=== PATIENT | female | born 1960 | race Caucasian/White ===

== ENCOUNTER 2020-12-25 23:55 | Observation (INO) | payer MEDICARE, OTHER ==
[~2020-12-25] VITALS: Ht 154.9 cm; Wt 63.3 kg
[2020-12-26] VITALS (8 sets, daily range): BP systolic 89–151; BP diastolic 48–88
[2020-12-26] MEDS ORDERED: HYDR-3820 PO (00:04)
[2020-12-26] MEDS ORDERED: LISI1TAB46 PO (00:04)
[2020-12-26] MEDS ORDERED: DULO30CA49 PO (00:04)
[2020-12-26 00:14] LABS: BASOPHILS # (AUTO) 0.1 10^3/uL (0.0-0.1); BASOPHILS % (AUTO) 0 % (0-10); EOSINOPHILS # (AUTO) 0.1 10^3/uL (0.0-0.3); EOSINOPHILS % (AUTO) 0 % (0-10); HEMATOCRIT 41 % (35-52); HEMOGLOBIN 13.9 g/dL (11.5-16.0); LYMPHOCYTES # (AUTO) 1.3 10^3/uL (1.0-4.0); LYMPHOCYTES % (AUTO) 7 % (12-44); MEAN CORPUSCULAR HEMOGLOBIN 37 pg (25-34); MEAN CORPUSCULAR HGB CONC 34 g/dL (32-36); MEAN CORPUSCULAR VOLUME 110 fL (80-99); MONOCYTES # (AUTO) 0.6 10^3/uL (0.0-1.0); MONOCYTES % (AUTO) 3 % (0-12); NEUTROPHILS # (AUTO) 16.3 10^3/uL (1.8-7.8); NEUTROPHILS % (AUTO) 89 % (42-75); PLATELET COUNT 465 10^3/uL (130-400); WHITE BLOOD COUNT 18.4 10^3/uL (4.3-11.0)
[2020-12-26 00:17] LABS: ALBUMIN 4.2 GM/DL (3.2-4.5)
[2020-12-26 00:18] LABS: POTASSIUM 2.8 MMOL/L (3.6-5.0)
[2020-12-26 00:19] LABS: CALCIUM 9.5 MG/DL (8.5-10.1)
[2020-12-26 00:20] LABS: TOTAL PROTEIN 7.7 GM/DL (6.4-8.2)
[2020-12-26 00:22] LABS: BILIRUBIN,TOTAL 0.7 MG/DL (0.1-1.0)
[2020-12-26 00:24] LABS: CREATININE SERUM 1.81 MG/DL (0.60-1.30)
[2020-12-26] MEDS ORDERED: ONDANSETRON 4 MG/2 ML (SDV) Z0FRAN IVP ONE (00:45)
[2020-12-26 00:47] LABS: BAND NEUTROPHILS 4 %; EOSINOPHILS % (MANUAL) 1 %; LYMPHOCYTES % (MANUAL) 5 %; MONOCYTES % (MANUAL) 3 %; NEUTROPHILS % (MANUAL) 87 %
[2020-12-26 01:10] LABS: MAGNESIUM 2.3 MG/DL (1.6-2.4)
--- NOTE | 2020-12-26 01:27 | ED Syncope ---
General Chief Complaint: Dizziness/Syncope Stated Complaint: SYNCOPE Source of Information: Patient, Family Exam Limitations: No Limitations History of Present Illness Date Seen by Provider: Dec 26, 2020 Time Seen by Provider: 00:27 Initial Comments Here with report of syncopal episode at home. She is apparently walking into the bathroom and she felt some GI distress and then passed out. She fell and hit the back of her head. No significant loss of consciousness. She has been under a lot of stress over the last week as she had CT scan from outside facility which showed thyroid mass. She has appointment at [facility] at 1330 today for evaluation of the and likely surgical intervention. She admits to drinking approximately a pint to 1/5 of alcohol daily since the of her grandson a year ago. She does not drink every day and denies any withdrawal symptoms. Denies blood in her urine or stool. She has had some vomiting. She has felt like she could have diarrhea but has not. She does admit to decreased appetite and decreased eating and drinking due to the stress of everything. She has known difficulty with swallowing due to the thyroid mass which is approximately 3 x [address] scan report that was brought in by the patient. Denies recent illness otherwise. She has had her Covid vaccination. She denies contact with anybody with Covid. Denies chest pain or breathing problems. Timing/Prior Episodes: No Prior History Symptoms Prior to Episode: Lightheadedness, Nausea Precipitating Factors: Emotional Stress Loss of Consciousness: Brief (Seconds) Current Symptoms: No Back to Normal, No Chest Pain, No Headache; Lightheadedness; No Loss of Bladder Control, No Loss of Bowel Control; Nausea, Weakness Allergies and Home Medications Allergies Coded Allergies: morphine (Verified Allergy, Unknown, 12/26/20) Patient Home Medication List Home Medication List Reviewed: Yes Duloxetine HCl (Duloxetine HCl) 30 Mg Capsule., (Reported) Entered as Reported by: AV DEAN on 12/26/20 0004 Last Action: New Order Hydrocodone/Acetaminophen (Hydrocodone-Acetamin 10-325 mg) 1 Each Tablet, (Reported) Entered as Reported by: AV DEAN on 12/26/203 Last Action: New Order Lisinopril/Hydrochlorothiazide (Lisinopril-Hctz 20-12.5 mg Tab) 1 Each Tablet, (Reported) Entered as Reported by: AV DEAN on 12/26/20 0004 Last Action: New Order Review of Systems Constitutional: see HPI; No chills, No fever EENTM: no symptoms reported Respiratory: No cough, No short of breath Cardiovascular: No chest pain, No edema Gastrointestinal: abdominal pain, nausea, vomiting Genitourinary: no symptoms reported Musculoskeletal: No back pain, No muscle pain Skin: no symptoms reported All Other Systems Reviewed Negative Unless Noted: Yes Past Sshemqs-Xzhcgq-Debbfe Hx Patient Social History Tobacco Use?: Yes Tobacco type used: Cigarettes Substance use?: No Alcohol Use?: Yes Alcohol type: Hard Liquor Alcohol Frequency: Daily Past Medical History Surgeries: Yes Orthopedic, Thyroidectomy Respiratory: Yes Asthma Cardiac: Yes Hypertension Genitourinary: No Gastrointestinal: No Musculoskeletal: Yes Degenerate Disk Disease Cancer: Yes Thyroid What Type of Treatment Did You: Surgical Intervention Psychosocial: Yes Depression Family Medical History Reviewed and Corrections made No Pertinent Family Hx Physical Exam Vital Signs Vital Signs - First Documented 12/26/20 12/26/20 00:00 00:22 Temp 36.8 Pulse 77 Resp 18 B/P (MAP) 103/48 (66) 99/60 (73) 89/54 (66) Pulse Ox 96 O2 Delivery Room Air Capillary Refill : Height, Weight, BMI Height: '" Weight: lbs. oz. kg; BMI Method: General Appearance: No Apparent Distress, WD/WN HEENT: PERRL/EOMI, Pharynx Normal Neck: Non Tender, Supple, Lymphadenopathy (L), Lymphadenopathy (R) Cardiovascular: Regular Rate, Rhythm, No Murmur Respiratory: No Accessory Muscle Use, No Respiratory Distress, Crackles Gastrointestinal: Non Tender, Soft Back: Normal Inspection, No CVA Tenderness, No Vertebral Tenderness Extremities: Normal Range of Motion, Non Tender Neurologic/Psychiatric: Alert, Oriented x3 Motor/Sensory: No Motor Deficit, No Sensory Deficit, No Pronator Drift Skin: Normal Color, Warm/Dry Progress/Results/Core Measures Results/Orders Lab Results Laboratory Tests Test 12/26/20 00:05 12/26/20 02:37 Range/Units White Blood Count 18.4 H 4.3-11.0 10^3/uL Red Blood Count 3.72 L 3.80-5.11 10^6/uL Hemoglobin 13.9 11.5-16.0 g/dL Hematocrit 41 35-52 % Mean Corpuscular Volume 110 H 80-99 fL Mean Corpuscular Hemoglobin 37 H 25-34 pg Mean Corpuscular Hemoglobin Concent 34 32-36 g/dL Red Cell Distribution Width 13.6 10.0-14.5 % Platelet Count 465 H 130-400 10^3/uL Mean Platelet Volume 9.0 9.0-12.2 fL Immature Granulocyte % (Auto) 0 % Neutrophils (%) (Auto) 89 H 42-75 % Lymphocytes (%) (Auto) 7 L 12-44 % Monocytes (%) (Auto) 3 0-12 % Eosinophils (%) (Auto) 0 0-10 % Basophils (%) (Auto) 0 0-10 % Neutrophils # (Auto) 16.3 H 1.8-7.8 10^3/uL Lymphocytes # (Auto) 1.3 1.0-4.0 10^3/uL Monocytes # (Auto) 0.6 0.0-1.0 10^3/uL Eosinophils # (Auto) 0.1 0.0-0.3 10^3/uL Basophils # (Auto) 0.1 0.0-0.1 10^3/uL Immature Granulocyte # (Auto) 0.1 0.0-0.1 10^3/uL Neutrophils % (Manual) 87 % Lymphocytes % (Manual) 5 % Monocytes % (Manual) 3 % Eosinophils % (Manual) 1 % Band Neutrophils 4 % Macrocytosis SLIGHT D-Dimer 1.53 H 0.00-0.49 UG/ML Sodium Level 140 135-145 MMOL/L Potassium Level 2.8 L 3.6-5.0 MMOL/L Chloride Level 88 L 98-107 MMOL/L Carbon Dioxide Level 18 L 21-32 MMOL/L Anion Gap 34 H 5-14 MMOL/L Blood Urea Nitrogen 25 H 7-18 MG/DL Creatinine 1.81 H 0.60-1.30 MG/DL Estimat Glomerular Filtration Rate 28 BUN/Creatinine Ratio 14 Glucose Level 156 H 70-105 MG/DL Calcium Level 9.5 8.5-10.1 MG/DL Corrected Calcium 9.3 8.5-10.1 MG/DL Magnesium Level 2.3 1.6-2.4 MG/DL Total Bilirubin 0.7 0.1-1.0 MG/DL Aspartate Amino Transf (AST/SGOT) 51 H 5-34 U/L Alanine Aminotransferase (ALT/SGPT) 37 0-55 U/L Alkaline Phosphatase 109 40-136 U/L Troponin I 0.116 H <0.028 NG/ML C-Reactive Protein High Sensitivity 2.89 H 0.00-0.50 MG/DL Total Protein 7.7 6.4-8.2 GM/DL Albumin 4.2 3.2-4.5 GM/DL TSH [place] Testing 0.44 0.35-4.94 UIU/ML Urine Color YELLOW Urine Clarity CLEAR Urine pH 5.5 5-9 Urine Specific [place] >=1.030 1.016-1.022 Urine Protein TRACE H NEGATIVE Urine Glucose (UA) NEGATIVE NEGATIVE Urine Ketones 2+ H NEGATIVE Urine Nitrite NEGATIVE NEGATIVE Urine Bilirubin 1+ H NEGATIVE Urine Urobilinogen 0.2 < = 1.0 MG/DL Urine Leukocyte Esterase NEGATIVE NEGATIVE Urine RBC (Auto) NEGATIVE NEGATIVE Urine RBC NONE /HPF Urine WBC NONE /HPF Urine Squamous Epithelial Cells 2-5 /HPF Urine Crystals NONE /LPF Urine Bacteria TRACE /HPF Urine Casts PRESENT /LPF Urine Hyaline Casts 10-25 H /LPF Urine Mucus SMALL H /LPF Urine Culture Indicated NO My Orders Orders - J LUIS SILVA MD Cbc With Automated Diff (12/26/20 00:04) Comprehensive Metabolic Panel (12/26/20 00:04) Monitor-Rhythm Ecg Trace Only (12/26/20 00:04) Ekg Tracing (12/26/20 00:04) Orthostatic Vital Signs (Adult (12/26/20 00:04) Fibrin Degradation Products (12/26/20 00:21) Troponin I (12/26/20:21) Manual Differential (12/26/20 00:05) Hs C Reactive Protein (12/26/20 00:37) Magnesium (12/26/20 00:37) Thyroid Analyzer (12/26/20 00:37) Ua Culture If Indicated (12/26/20 00:37) Ondansetron Injection (Zofran Injectio (12/26/20 00:45) Chest 1 View, Ap/Pa Only (12/26/20 00:37) Ct Head Wo (12/26/20 00:37) Lactated Ringers (Lr 1000 Ml Iv Solution (12/26/20 01:45) Potassium Cl 10meq/50ml Ivpb (Kcl 10 Meq (12/26/20 02:15) Aspirin Chewable Tablet (Baby Aspirin Ch (12/26/20 04:00) Medications Given in ED Current Medications Medications Dose Ordered Sig/Gigi Route Start Time Stop Time Status Last Admin Dose Admin Aspirin 324 mg ONCE ONCE PO 12/26/20 04:00 12/26/20 04:01 DC 12/26/20 04:07 324 MG Lactated Ringer's 1,000 ml @ 0 mls/hr Q0M ONCE IV 12/26/20 01:45 12/26/20 01:46 DC 12/26/20 01:45 1,000 MLS/HR Ondansetron HCl 4 mg ONCE ONCE IVP 12/26/20 00:45 12/26/20 00:46 DC 12/26/20 00:55 4 MG Potassium Chloride 50 ml @ 50 mls/hr ONCE ONCE IV 12/26/20 02:15 12/26/20 03:14 DC 12/26/20 02:30 50 MLS/HR Vital Signs/I&O 12/26/20 12/26/20 00:00 00:22 Temp 36.8 Pulse 77 67 80 74 Resp 18 B/P (MAP) 103/48 (66) 99/60 (73) 89/54 (66) Pulse Ox 96 O2 Delivery Room Air 12/26/20 00:00 Intake Total 500 ml Balance 500 ml Blood Pressure Mean: 66 Progress Progress Note : Progress Note Seen and evaluated. IV established by EMS with normal saline 1 L bolus running which we will complete. Labs, chest x-ray, EKG and CT head ordered. We will check thyroid studies as well as troponin and D-dimer due to syncope. She does have thyroid mass as well. Monitor patient. 0135: Repeat fluid bolus with LR 1 L bolus due to apparent dehydration on chemistries. Troponin slightly elevated and D-dimer is elevated as well. EKG is not normal and she has LVH with questionable ST depression in the lateral leads. She has no ST elevation. Patient denies chest pain. Unable to do CT angiogram of the chest due to renal insufficiency. Pending UA. Monitor patient. 0402: I did discuss the case with Dr. Barreto, cardiology on-call and he accepts patient in consult. 0410: I did discuss the case with Dr. Sneed and she accepts patient for admission, observation status. Patient does have thyroid mass and this could be evaluated here to potentially if our surgery team has that capability. I believe that for inpatient admitting team to evaluate. Dr. Barreto is requesting n.p.o. status and repeat troponin in the morning which was ordered. She remains chest pain- free and in fact is feeling much better after fluid administration. UA is negative. White count elevation is likely related to the vomiting. This also probably accounts for the hypokalemia. We will replace potassium and did give 10 mEq IV already. We have ordered 20 mEq IV for administration on the floor. All findings and concerns discussed with patient and family who agree with the plan. Initial ECG Impression Date: Dec 26, 2020 Initial ECG Impression Time: 00:11 Initial ECG Rate: 65 Initial ECG Rhythm: Normal Sinus Comment Sinus rhythm with left atrial enlargement. Incomplete right bundle branch block. Left ventricular hypertrophy. Prolonged QT interval. Minimal ST depression in leads V3 through V5. No ST elevation [place] noted. No previous available for comparison. Interpreted by me. Diagnostic Imaging Diagonstic Imaging: Xray Plain Films/CT/US/NM/MRI: chest Comments No obvious infiltrate or pneumothorax. Reviewed: Reviewed by Me Diagonstic Imaging: CT Plain Films/CT/US/NM/MRI: head Comments No acute hemorrhage, hydrocephalus or mass-effect. Reviewed: Reviewed Night [facility] Study CT Read Date: Dec 26, 2020 CT Read Time: 01:15 Departure Communication (Admissions) Time/Spoke to Admitting Phy: 04:10 Time/Spoke to Consulting Phy: 04:02 Impression Primary Impression: Syncope Qualified Codes: R55 - Syncope and collapse Additional Impressions: Hypokalemia Elevated troponin Vomiting Qualified Codes: R11.2 - Nausea with vomiting, unspecified Thyroid mass Disposition: ADMITTED INPATIENT Condition: Stable Admissions Decision to Admit Reason: Admit from ER (General) Decision to Admit/Date: Dec 26, 2020 Time/Decision to Admit Time: 04:02 Departure-Patient Inst. Referrals: NO,LOCAL PHYSICIAN (PCP/Family) Primary Care Physician J LUIS SILVA MD Dec 26, 2020 01:27
[2020-12-26 01:30] LABS: TSH (THYROID ANALYZER) 0.44 UIU/ML (0.35-4.94)
[2020-12-26] MEDS ORDERED: LACTATED RINGERS 1,000 ML IV ONE (01:45)
[2020-12-26] MEDS ORDERED: POTASSIUM CL 10MEQ/50ML IVPB 50 ML IV ONE (02:15)
[2020-12-26 02:38] LABS: CLARITY,URINE CLEAR; COLOR,URINE YELLOW; GLUCOSE, URINE (UA) NEGATIVE (NEGATIVE); KETONES,URINE 2+ (NEGATIVE); LEUKOCYTE ESTERASE ,URINE NEGATIVE (NEGATIVE); NITRITE,URINE NEGATIVE (NEGATIVE); PH,URINE 5.5 (5-9); PROTEIN,URINE TRACE (NEGATIVE)
[2020-12-26 02:47] LABS: BACTERIA,URINE TRACE /HPF; BILIRUBIN,URINE 1+ (NEGATIVE)
[2020-12-26] MEDS ORDERED: ASPIRIN 81 MG CHEW (CHILDREN'S ASA) PO ONE (04:00)
[2020-12-26] MEDS: LACTATED RINGERS 1,000 ML IV SCH ×3 (05:13→22:53)
[2020-12-26] MEDS: POTASSIUM CL 10MEQ/50ML IVPB 50 ML IV SCH ×2 (05:13→06:04)
--- NOTE | 2020-12-26 06:51 | Diagnostic Imaging Report ---
PROCEDURE: CT head without contrast. TECHNIQUE: Multiple contiguous axial images were obtained through the brain without the use of intravenous contrast. Auto Exposure Controls were utilized during the CT exam to meet ALARA standards for radiation dose reduction. INDICATION: Syncope with head injury. COMPARISON: None available. FINDINGS: No hyperdense hemorrhage or space-occupying mass. No hydrocephalus or midline shift. The basilar cisterns are normal. Wang-white matter differentiation is well preserved. The mastoid air cells are clear. Paranasal sinuses are normal. No focal osseous abnormality of the calvarium. IMPRESSION: 1. No acute intracranial process. 2. Findings are in agreement with the preliminary report. Dictated by: Dictated on workstation # [id number]
--- NOTE | 2020-12-26 07:30 | Diagnostic Imaging Report ---
INDICATION: syncope. TECHNIQUE: Single view chest 1:05 AM. CORRELATION STUDY: None FINDINGS: The heart size, mediastinal configuration and pulmonary vascularity are within normal limits. Asymmetric increased density medial right lung base, question for potential infiltrate or aspiration. Left lung clear. Partial visualization of cervical-thoracic spinal fixation hardware. IMPRESSION: 1. Suspect infiltrate or aspiration at the right lung base medially. Follow-up imaging if clinically warranted. Dictated by: Dictated on workstation # [id number]
[2020-12-26 08:54] LABS: POTASSIUM 3.3 MMOL/L (3.6-5.0)
[2020-12-26 08:55] LABS: CALCIUM 8.8 MG/DL (8.5-10.1)
[2020-12-26 09:00] LABS: CREATININE SERUM 1.2 MG/DL (0.60-1.30)
[2020-12-26] MEDS ORDERED: GABA-490 PO ×2 (10:19→12:39)
--- NOTE | 2020-12-26 12:13 | History & Physical-Hospitalist ---
History of Present Illness HPI/Chief Complaint Joanna Ramirez is a 60 year old female with PMH hypertension, thyroid nodules status post partial thyroidectomy, thyroid mass, alcohol abuse, who presented with lightheadedness and dizziness. She reports that she was going to the bathroom last night and got very dizzy and fell down to the ground. She denies losing consciousness. She did hit her head. She had to crawl out of the bathroom. She says that her blood pressure was very low. She denies any chest pain. She denies shortness of breath. She denies nausea and vomiting. She denies diarrhea. She has not had any weight loss. Source: patient Exam Limitations: no limitations Date Seen 12/26/20 Time Seen by a Provider: 09:50 Attending Physician Gregoria Sneed DO PCP No,Local Physician Referring Physician Date of Admission Dec 26, 2020 at 04:24 Home Medications & Allergies Home Medications Reviewed patient Home Medication Reconciliation performed by pharmacy medication reconciliations radioactivity technician and/or nursing. Patients Allergies have been reviewed. Allergies Allergies Coded Allergies morphine (Verified Allergy, Unknown, Rash, 12/26/20) Past Uwfxpes-Qswuat-Otlfiz Hx Patient Social History Tobacco Use?: No Tobacco type used: Cigarettes Smoking Status: Current Everyday Smoker Use of E-Cig and/or Vaping dev: No Substance use?: No Alcohol Use?: No Alcohol type: Hard Liquor Alcohol Frequency: Daily Pt feels they are or have been: No Current Status status: No status: No Advance Directives: No Communicates: Verbally Primary Language: Japanese Preferred Spoken Language: Japanese Is interpretation needed?: No Implanted or Applied Medical D: None Past Medical History Surgeries: Orthopedic, Thyroidectomy Asthma Hypertension Degenerate Disk Disease Thyroid What Type of Treatment Did You: Surgical Intervention Depression Family Medical History Reviewed and Corrections made No Pertinent Family Hx Review of Systems Constitutional: dizziness EENTM: no symptoms reported Respiratory: no symptoms reported Cardiovascular: no symptoms reported Gastrointestinal: no symptoms reported Genitourinary: no symptoms reported Musculoskeletal: no symptoms reported Skin: no symptoms reported Psychiatric/Neurological: No Symptoms Reported Physical Exam Physical Exam Vital Signs Vital Signs - First Documented 12/26/20 12/26/20 00:00 00:22 Temp 36.8 Pulse 77 Resp 18 B/P (MAP) 103/48 (66) 99/60 (73) 89/54 (66) Pulse Ox 96 O2 Delivery Room Air Capillary Refill : Less Than 3 Seconds Height, Weight, BMI Height: '" Weight: lbs. oz. kg; 26.38 BMI Method: General Appearance: No Apparent Distress, WD/WN HEENT: PERRL/EOMI, Pharynx Normal Neck: Normal Inspection, Other (Left thyroid nodule) Respiratory: Lungs Clear, Normal Breath Sounds, No Respiratory Distress Cardiovascular: Regular Rate, Rhythm, No Edema, No Murmur Gastrointestinal: Normal Bowel Sounds, Non Tender, Soft Extremity: Normal Inspection, Non Tender, No Pedal Edema Neurologic/Psychiatric: Alert, Oriented x3, No Motor/Sensory Deficits, Normal Mood/Affect Skin: Normal Color, Warm/Dry Results Results/Procedures Labs Laboratory Tests 12/26/20 00:05 12/26/20 08:25 Patient resulted labs reviewed. Imaging: Reviewed Imaging Report Assessment/Plan Admission Diagnosis Presyncope Admission Status: Observation Assessment and Plan Presyncope Likely orthostatic hypotension Elevated troponin Hypokalemia Orthostatics negative Continue IV fluids Symptoms resolved Troponin mildly elevated, repeat decreasing Cardiology consulted Monitor on business integration manager and correct electrolytes as needed Diagnosis/Problems Diagnosis/Problems (1) Pre-syncope Status: Acute (2) Orthostatic hypotension Status: Acute (3) Elevated troponin Status: Acute (4) Thyroid mass Status: Acute (5) Hypokalemia Status: Acute LUIS BUENO MD Dec 26, 2020 12:13
[2020-12-26] MEDS ORDERED: METO200T48 PO (12:39)
[2020-12-26] MEDS ORDERED: ASPI-789 PO (12:39)
[2020-12-26] MEDS ORDERED: IBUP-2185 PO (12:39)
--- NOTE | 2020-12-26 17:41 | Consultation-Cardiology ---
HPI-Cardiology Cardiology Consultation: Date of Consultation 12/26/2020 Date of Admission 12/25/2020 Attending Physician Gregoria Sneed DO Admitting Physician Zaida,Local Physician Consulting Physician EDDY SMALL JR, MD HPI: Time Seen by a Provider: 17:45 Chief Complaint: Reason for consultation: Syncope. I had the pleasure of seeing Joanna on the cardiac stepdown unit at [facility] in [place], [place] this evening. She has no known history of coronary artery disease. She was in her usual state of health until yesterday when she was having a significant amount of nausea and vomiting. She denies any abdominal pain. She denies diarrhea. She was also having cold sweats. After she had vomited several times, she laid down to rest. She spent most of the day in bed. Then last evening she got up to use the bathroom and she became very weak and fell on the floor. She is not sure if she lost consciousness. She tried to stand up but was too weak. She crawled over to a chair and tried to call her brother but he did not answer the phone. She then crawled down the cedillo to his bedroom and woke him up. He helped her on the sofa and she laid there for a short while then called her daughter who came over to check on her. Her daughter checked her blood pressure and systolic was 58 mmHg so she called 911. The patient was then taken to the emergency room for further evaluation. During evaluation, she was found to have acute kidney injury, hypokalemia and a mildly elevated troponin level. Overnight she received a significant amount of intravenous fluids and her metabolic derangements are improving and the troponin level is going down. She did have some burning sensation in her chest yesterday but she was not sure if this was related to the vomiting. She denies dyspnea. She denies paroxysmal nocturnal dyspnea, orthopnea, palpitations, or lower extremity edema. She started taking duloxetine about 1 month ago for her anxiety. Certain portions of this document may have been dictated utilizing voice recognition technology. Inherent to this technology, typographical and grammatical errors may exist. As much as I am diligent to identify and correct these mistakes, some errors may remain in the document. Review of Systems-Cardiology Review of Systems Other comments Review of 10 organ systems is as per the history of present illness, otherwise negative. All Other Systems Reviewed Negative Unless Noted: Yes [id number] Hx Patient Social History Smoking Status: Current Everyday Smoker Have you traveled recently?: No Alcohol Use?: No Pt feels they are or have been: No Tobacco type used: Cigarettes Past Medical History PMH As described under Assessment. Family Medical History Family Medical History: The patient does not know of any family history of premature coronary artery disease in first-degree relatives. Allergies and Home Medications Allergies Coded Allergies: morphine (Verified Allergy, Unknown, Rash, 12/26/20) Patient Home Medication List Home Medication List Reviewed: Yes Aspirin/Acetaminophen/Caffeine (Excedrin Migraine Caplet) 1 Each Tablet, 2 EACH PO Q6-8HR PRN for Headache, (Reported) Entered as Reported by: TIKI AGUILAR on 12/26/201238 Last Action: Reviewed Duloxetine HCl (Duloxetine HCl) 30 Mg Capsule.dr, 30 MG PO HS, (Reported) Entered as Reported by: AV DEAN on 12/26/203 Last Action: Reviewed Gabapentin (Gabapentin) 400 Mg Capsule, 400 MG PO 1799,1999, (Reported) Entered as Reported by: JAYDON JACOBS on 12/26/20 101 Last Action: Reviewed Gabapentin (Gabapentin) 400 Mg Capsule, 800 MG PO DAILY, (Reported) Entered as Reported by: TIKI AGUILAR on 12/26/201238 Last Action: Reviewed Hydrocodone/Acetaminophen (Hydrocodone-Acetamin 10-325 mg) 1 Each Tablet, 1 EA PO Q4H, (Reported) Entered as Reported by: AV EDAN on 12/26/20 0004 Last Action: Reviewed Ibuprofen (Ibuprofen) 200 Mg Capsule, 800 MG PO Q8H PRN for PAIN-MILD (1-4), (Reported) Entered as Reported by: TIKI AGUILAR on 12/26/201238 Last Action: Reviewed Lisinopril/Hydrochlorothiazide (Lisinopril-Hctz 20-12.5 mg Tab) 1 Each Tablet, 1 EA PO HS, (Reported) Entered as Reported by: AV DEAN on 12/26/203 Last Action: Reviewed Metoprolol Succinate (Metoprolol Succinate) 200 Mg Tab.er.24h, 200 MG PO DAILY, (Reported) Entered as Reported by: TIKI AGUILAR on 12/26/201238 Last Action: Reviewed Exam Vital Signs Vital Signs Date Time Temp Pulse Resp B/P (MAP) Pulse Ox O2 Delivery O2 Flow Rate FiO2 12/26/20 16:00 36.8 90 18 151/71 (97) 93 Room Air Physical Exam General: Alert. No acute distress. Well nourished and appears stated age. Eye: Extraocular movements are intact. Conjunctivae are clear. There are no xanthelasma. HENT: Normocephalic. Atraumatic. Carotid pulsations 2/2 without bruits. Neck: Jugular venous pressure does not appear elevated. There is a soft mass at the supraclavicular notch. Respiratory: Lungs are clear to auscultation. Respirations are non-labored. Breath sounds are equal. Symmetrical chest wall expansion. Cardiovascular: Normal rate. Regular rhythm. 1/6 systolic ejection murmur. No gallop. Point of maximal impulse is not appear displaced. Good pulses equal in all extremities. No edema. Gastrointestinal: Soft. Normal bowel sounds. Skin: Skin turgor is normal. There is no pallor. Musculoskeletal: No kyphosis or scoliosis appreciated. Neurologic: Alert and oriented to person, place, time. Cranial nerves 3-12 appear grossly intact. The patient has good motor tone strength in the upper and lower extremities bilaterally. Psychiatric: Cooperative. Appropriate mood & affect. Labs Laboratory Tests Test 12/26/20 00:05 12/26/20 02:37 12/26/20 08:25 Range/Units White Blood Count 18.4 H 4.3-11.0 10^3/uL Red Blood Count 3.72 L 3.80-5.11 10^6/uL Hemoglobin 13.9 11.5-16.0 g/dL Hematocrit 41 35-52 % Mean Corpuscular Volume 110 H 80-99 fL Mean Corpuscular Hemoglobin 37 H 25-34 pg Mean Corpuscular Hemoglobin Concent 34 32-36 g/dL Red Cell Distribution Width 13.6 10.0-14.5 % Platelet Count 465 H 130-400 10^3/uL Mean Platelet Volume 9.0 9.0-12.2 fL Immature Granulocyte % (Auto) 0 % Neutrophils (%) (Auto) 89 H 42-75 % Lymphocytes (%) (Auto) 7 L 12-44 % Monocytes (%) (Auto) 3 0-12 % Eosinophils (%) (Auto) 0 0-10 % Basophils (%) (Auto) 0 0-10 % Neutrophils # (Auto) 16.3 H 1.8-7.8 10^3/uL Lymphocytes # (Auto) 1.3 1.0-4.0 10^3/uL Monocytes # (Auto) 0.6 0.0-1.0 10^3/uL Eosinophils # (Auto) 0.1 0.0-0.3 10^3/uL Basophils # (Auto) 0.1 0.0-0.1 10^3/uL Immature Granulocyte # (Auto) 0.1 0.0-0.1 10^3/uL Neutrophils % (Manual) 87 % Lymphocytes % (Manual) 5 % Monocytes % (Manual) 3 % Eosinophils % (Manual) 1 % Band Neutrophils 4 % Macrocytosis SLIGHT D-Dimer 1.53 H 0.00-0.49 UG/ML Sodium Level 140 137 135-145 MMOL/L Potassium Level 2.8 L 3.3 L 3.6-5.0 MMOL/L Chloride Level 88 L 95 L 98-107 MMOL/L Carbon Dioxide Level 18 L 17 L 21-32 MMOL/L Anion Gap 34 H 25 H 5-14 MMOL/L Blood Urea Nitrogen 25 H 23 H 7-18 MG/DL Creatinine 1.81 H 1.20 0.60-1.30 MG/DL Estimat Glomerular Filtration Rate 28 46 BUN/Creatinine Ratio 14 19 Glucose Level 156 H 146 H 70-105 MG/DL Calcium Level 9.5 8.8 8.5-10.1 MG/DL Corrected Calcium 9.3 8.5-10.1 MG/DL Magnesium Level 2.3 1.6-2.4 MG/DL Total Bilirubin 0.7 0.1-1.0 MG/DL Aspartate Amino Transf (AST/SGOT) 51 H 5-34 U/L Alanine Aminotransferase (ALT/SGPT) 37 0-55 U/L Alkaline Phosphatase 109 40-136 U/L Troponin I 0.116 H 0.032 H <0.028 NG/ML C-Reactive Protein High Sensitivity 2.89 H 0.00-0.50 MG/DL Total Protein 7.7 6.4-8.2 GM/DL Albumin 4.2 3.2-4.5 GM/DL TSH Plato Testing 0.44 0.35-4.94 UIU/ML Urine Color YELLOW Urine Clarity CLEAR Urine pH 5.5 5-9 Urine Specific [place] >=1.030 1.016-1.022 Urine Protein TRACE H NEGATIVE Urine Glucose (UA) NEGATIVE NEGATIVE Urine Ketones 2+ H NEGATIVE Urine Nitrite NEGATIVE NEGATIVE Urine Bilirubin 1+ H NEGATIVE Urine Urobilinogen 0.2 < = 1.0 MG/DL Urine Leukocyte Esterase NEGATIVE NEGATIVE Urine RBC (Auto) NEGATIVE NEGATIVE Urine RBC NONE /HPF Urine WBC NONE /HPF Urine Squamous Epithelial Cells 2-5 /HPF Urine Crystals NONE /LPF Urine Bacteria TRACE /HPF Urine Casts PRESENT /LPF Urine Hyaline Casts 10-25 H /LPF Urine Mucus SMALL H /LPF Urine Culture Indicated NO Radiology ECHOCARDIOGRAM (12/26/2020): 1. Left ventricle: The cavity size is normal. Wall thickness is normal. Systolic function is normal. The estimated ejection fraction is 60-65%. There were no regional wall motion abnormalities identified. Left ventricular diastolic function parameters are normal. 2. Aortic valve: There is mild aortic stenosis with a mean gradient of 11 mmHg, a peak gradient of 25 mmHg, and a peak velocity of 2.5 m/s. 3. Pulmonary arteries: The pulmonary artery pressure cannot be estimated on this study due to inadequate tricuspid regurgitant envelope. ECG Impression ECG EKG : Comment Sinus rhythm with incomplete right bundle branch block, diffuse nonspecific ST-T wave changes and prolonged QT with a QTc of 586 ms. Diagnosis/Problems Diagnosis/Problems (1) Syncope Status: Acute Assessment & Plan: She is not completely sure if she did have complete loss of consciousness. I suspect she had profound weakness due to severe dehydration from vomiting. She does have possible mild aortic stenosis noted on her echocardiogram. This would not cause syncope. She does also have a prolonged QT interval but this could be related to hypokalemia that was present on admission around the time the electrocardiogram was performed. I would suggest monitoring her for 1 more night and give her some additional intravenous fluids. I will obtain a follow-up electrocardiogram in the morning. If the QT interval is improved, then she most likely just had prolonged QT due to hypokalemia. If the QT interval remains elevated, I would stop her metoprolol and duloxetine since this combination can cause QT prolongation according to our pharmacist. (2) Elevated troponin Status: Acute Assessment & Plan: I suspect this may have been related to the acute kidney injury. This is trending downward. She is not having any anginal chest pain and has no obvious ischemic changes on her electrocardiogram. This is likely noncardiac elevation of the troponin and does not represent an acute myocardial infarction. (3) Prolonged QT interval Assessment & Plan: As above, this may have been related to the hypokalemia or possibly a drug-drug interaction. We will proceed as above. (4) Primary hypertension Assessment & Plan: She was actually having low blood pressures on admission. This is improving with intravenous fluids. I would hold off on resuming her antihypertensive medication until tomorrow. (5) Aortic stenosis Assessment & Plan: Her echocardiogram shows possible mild aortic stenosis by velocities although the valve itself is not well visualized. Some of the acceleration of flow may have been related to hyperdynamic state due to hypovolemia. I would just recommend a follow-up echocardiogram in 1 years time. (6) Acute kidney injury superimposed on chronic kidney disease Assessment & Plan: Most likely related to dehydration. As above, this likely caused the troponin level to become elevated. The renal function is improving with intravenous hydration. (7) Cigarette smoker Assessment & Plan: She needs to quit smoking. She was counseled in this regard. Problem Qualifiers (1) Syncope: Syncope type: unspecified Qualified Codes: R55 - Syncope and collapse EDDY SMALL JR, MD Dec 26, 2020 17:41
[2020-12-26] MEDS: NICOTINE 14 MG (NICODERM) PATCH TD SCH (20:16)
[2020-12-26] MEDS ORDERED: ACETAMINOPHEN 325 MG TABLET PO PRN (21:45)
[2020-12-26] MEDS ORDERED: KCL 20 MEQ TAB (K-DUR) PO ONE (22:15)
[2020-12-27 03:20] VITALS: BP 138/73
[2020-12-27 05:22] LABS: BASOPHILS % (AUTO) 0 % (0-10); EOSINOPHILS # (AUTO) 0.2 10^3/uL (0.0-0.3); EOSINOPHILS % (AUTO) 2 % (0-10); HEMATOCRIT 31 % (35-52); HEMOGLOBIN 10.3 g/dL (11.5-16.0); LYMPHOCYTES # (AUTO) 2.3 10^3/uL (1.0-4.0); LYMPHOCYTES % (AUTO) 29 % (12-44); MEAN CORPUSCULAR HEMOGLOBIN 37 pg (25-34); MEAN CORPUSCULAR HGB CONC 33 g/dL (32-36); MEAN CORPUSCULAR VOLUME 110 fL (80-99); MEAN PLATELET VOLUME 8.8 fL (9.0-12.2); MONOCYTES # (AUTO) 0.5 10^3/uL (0.0-1.0); MONOCYTES % (AUTO) 7 % (0-12); NEUTROPHILS # (AUTO) 4.8 10^3/uL (1.8-7.8); NEUTROPHILS % (AUTO) 61 % (42-75); PLATELET COUNT 314 10^3/uL (130-400); WHITE BLOOD COUNT 7.8 10^3/uL (4.3-11.0)
[2020-12-27 05:34] LABS: CHLORIDE 101 MMOL/L (98-107); POTASSIUM 3.1 MMOL/L (3.6-5.0); SODIUM 137 MMOL/L (135-145)
[2020-12-27 05:35] LABS: CALCIUM 8.7 MG/DL (8.5-10.1); GLUCOSE 92 MG/DL (70-105)
[2020-12-27 05:37] LABS: CARBON DIOXIDE 24 MMOL/L (21-32)
[2020-12-27 05:39] LABS: GFR ESTIMATED 85
[2020-12-27 05:40] LABS: BUN/CREATININE RATIO 17
[2020-12-27 05:42] LABS: MAGNESIUM 1.8 MG/DL (1.6-2.4)
[2020-12-27] MEDS ORDERED: KCL 20 MEQ TAB (K-DUR) PO ONE (08:00)
[2020-12-27] MEDS ORDERED: MAGNESIUM 1 GM/100 ML IVPB 100 ML IV ONE (08:00)
[2020-12-27] MEDS: NICOTINE 14 MG (NICODERM) PATCH TD SCH (08:28)
[2020-12-27] MEDS: LACTATED RINGERS 1,000 ML IV SCH (08:36)
[2020-12-27 08:40] VITALS: BP 162/84
[2020-12-27] MEDS ORDERED: NICOTINE PATCH REMOVAL TP SCH (08:59)
[2020-12-27] MEDS ORDERED: NICOTINE 14 MG (NICODERM) PATCH TD SCH (09:00)
--- NOTE | 2020-12-27 10:07 | Cardiology Progress Note ---
Progress Note-Cardiology Events since last exam Date Seen by Provider: Dec 27, 2020 Time Seen by Provider: 10:02 Events since last exam I am following her for possible syncope. She feels much better today and wants to go home. She denies any further vomiting. She denies chest pain, dyspnea, palpitations, syncope, or ankle edema. She does take a low-dose of hydrochlorothiazide with her lisinopril at home. She does not take any other diuretics. Certain portions of this document may have been dictated utilizing voice recognition technology. Inherent to this technology, typographical and grammatical errors may exist. As much as I am diligent to identify and correct these mistakes, some errors may remain in the document. Vitals Last set of Vitals Signs Vital Signs 12/27/20 08:40 Temp 37.3 Pulse 79 Resp 18 B/P (MAP) 162/84 (110) Pulse Ox 92 O2 Delivery Room Air Labs Labs Laboratory Tests 12/27/20 05:10 Exam Vital Signs Vital Signs Date Time Temp Pulse Resp B/P (MAP) Pulse Ox O2 Delivery O2 Flow Rate FiO2 12/27/20 08:40 37.3 79 18 162/84 (110) 92 Room Air Physical Exam General: Alert. No acute distress. Eye: No xanthelasma. HENT: Normocephalic. Neck: Jugular venous pressure does not appear elevated. Respiratory: Lungs are clear to auscultation. Respirations are non-labored. Breath sounds are equal. Symmetrical chest wall expansion. Cardiovascular: Normal rate. Regular rhythm. No murmur. No gallop. No edema. Gastrointestinal: Soft. Normal bowel sounds. Skin: Warm. Dry. Neurologic: Alert and oriented to person, place, time. Cranial nerves 3-11 grossly intact. Psychiatric: Cooperative. Appropriate mood & affect. Labs Laboratory Tests Test 12/27/20 05:10 Range/Units White Blood Count 7.8 4.3-11.0 10^3/uL Red Blood Count 2.81 L 3.80-5.11 10^6/uL Hemoglobin 10.3 #L 11.5-16.0 g/dL Hematocrit 31 L 35-52 % Mean Corpuscular Volume 110 H 80-99 fL Mean Corpuscular Hemoglobin 37 H 25-34 pg Mean Corpuscular Hemoglobin Concent 33 32-36 g/dL Red Cell Distribution Width 13.5 10.0-14.5 % Platelet Count 314 130-400 10^3/uL Mean Platelet Volume 8.8 L 9.0-12.2 fL Immature Granulocyte % (Auto) 0 % Neutrophils (%) (Auto) 61 42-75 % Lymphocytes (%) (Auto) 29 12-44 % Monocytes (%) (Auto) 7 0-12 % Eosinophils (%) (Auto) 2 0-10 % Basophils (%) (Auto) 0 0-10 % Neutrophils # (Auto) 4.8 1.8-7.8 10^3/uL Lymphocytes # (Auto) 2.3 1.0-4.0 10^3/uL Monocytes # (Auto) 0.5 0.0-1.0 10^3/uL Eosinophils # (Auto) 0.2 0.0-0.3 10^3/uL Basophils # (Auto) 0.0 0.0-0.1 10^3/uL Immature Granulocyte # (Auto) 0.0 0.0-0.1 10^3/uL Sodium Level 137 135-145 MMOL/L Potassium Level 3.1 L 3.6-5.0 MMOL/L Chloride Level 101 98-107 MMOL/L Carbon Dioxide Level 24 21-32 MMOL/L Anion Gap 12 5-14 MMOL/L Blood Urea Nitrogen 12 7-18 MG/DL Creatinine 0.70 0.60-1.30 MG/DL Estimat Glomerular Filtration Rate 85 BUN/Creatinine Ratio 17 Glucose Level 92 70-105 MG/DL Calcium Level 8.7 8.5-10.1 MG/DL Magnesium Level 1.8 1.6-2.4 MG/DL Troponin I < 0.028 <0.028 NG/ML Diagnosis/Problems Diagnosis/Problems (1) Syncope Status: Acute Assessment & Plan: She is not completely sure if she did have complete loss of consciousness. I suspect she had profound weakness due to severe dehydration from vomiting. She does have possible mild aortic stenosis noted on her echoca rdiogram. This would not cause syncope. She does also have a prolonged QT interval but this could be related to hypokalemia that was present on admission around the time the electrocardiogram was performed. As her potassium level has improved, the QT interval is now normal this morning. I suspect the hypokalemia may have at least in part because the QT prolongation. I will plan to have her follow-up with my office after discharge. From a cardiac standpoint, she can be discharged to home today. (2) Elevated troponin Status: Acute Assessment & Plan: I suspect this may have been related to the acute kidney injury. The troponin was undetectable this morning. She is not having any anginal chest pain and has no obvious ischemic changes on her electrocardiogram. This is likely noncardiac elevation of the troponin and does not represent an acute myocardial infarction. (3) Prolonged QT interval Assessment & Plan: As above, this may have been related to the hypokalemia or possibly a drug-drug interaction. As above, this is improved as her potassium level has come closer to normal with potassium supplementation. I will resume a lower dose of metoprolol which she was taking for hypertension. I will also start low-dose potassium supplements. I would suggest not resuming the duloxetine which she recently started taking 1 month ago for anxiety. As noted in my initial consultation note from 12/26, the combination of metoprolol and duloxetine can cause QT prolongation. (4) Aortic stenosis Assessment & Plan: Her echocardiogram shows possible mild aortic stenosis by velocities although the valve itself is not well visualized. Some of the acceleration of flow may have been related to hyperdynamic state due to hypovolemia. This will need to be followed after discharge. (5) Primary hypertension Assessment & Plan: She was actually having low blood pressures on admission. This improved with intravenous fluids. I will restart her lisinopril/HCTZ but I have ordered this to be taken in the morning. For unclear reasons, she had been taking this at night prior to admission. I will also resume the metoprolol but at a lower dose. (6) Hypokalemia Status: Acute Assessment & Plan: Most likely related to the vomiting but she was also on low- dose diuretic at home as outlined above. I suggest that we discharge her with a low-dose of potassium supplementation which I have taken the liberty to order as an inpatient. (7) Acute kidney injury superimposed on chronic kidney disease Assessment & Plan: Most likely related to dehydration. As above, this likely caused the troponin level to become elevated. The renal function has improved with intravenous hydration. (8) Cigarette smoker Assessment & Plan: She needs to quit smoking. She was counseled in this regard. Problem Qualifiers (1) Syncope: Syncope type: unspecified Qualified Codes: R55 - Syncope and collapse EDDY SMALL JR, MD Dec 27, 2020 10:07
[2020-12-27] MEDS ORDERED: meTOproloL SUCCINATE 50 MG (TOPROL XL) TAB PO SCH (10:15)
[2020-12-27] MEDS ORDERED: lisINopril 20 MG (PRINIVIL) TABLET PO ONE (10:15)
[2020-12-27] MEDS ORDERED: POTA10CA43 PO (11:30)
[2020-12-27] MEDS ORDERED: METO50TA7 PO (11:30)
[2020-12-27 11:31] VITALS: BP 187/105
--- NOTE | 2020-12-27 11:38 | Discharge Summary ---
Discharge Summary Hospital Course Problems/Dx: (1) Syncope Status: Acute Qualifiers: Qualified Codes: R55 - Syncope and collapse (2) Elevated troponin Status: Acute (3) Prolonged QT interval (4) Aortic stenosis (5) Primary hypertension (6) Hypokalemia Status: Acute (7) Acute kidney injury superimposed on chronic kidney disease (8) Cigarette smoker (9) Thyroid mass Status: Acute Hospital Course Date of Admission: Dec 26, 2020 at 04:24 Admission Diagnosis : Presyncope Family Physician/Provider: ZaidaLocal Physician Date of Discharge: 12/27/20 Discharge Diagnosis: Orthostatic hypotension Hospital Course: Joanna Ramirez is a 60-year-old female with past medical history of hypertension, thyroid mass, tobacco abuse, who presented with presyncope and was admitted with orthostatic hypotension. She had an acute kidney injury. She was treated with IV fluids and her symptoms resolved. She had a mildly elevated troponin which quickly returned to normal. This was thought to be due to her acute kidney injury. She had a prolonged QT interval. Her metoprolol dose was decreased and her duloxetine was discontinued. She had issues with hypokalemia and was started on a low-dose potassium supplement. Dr. Barreto, cardiology, assisted with her care. She should follow-up with him in his clinic in about 3 weeks. She should follow-up with her primary care physician in about a week. She is currently undergoing work-up of a thyroid mass and her appointments will need to be rescheduled on Tuesday. She was discharged home in stable condition. Labs and Pending Lab Test: Laboratory Tests 12/27/20 05:10: White Blood Count 7.8, Red Blood Count 2.81L, Hemoglobin 10.3#L, Hematocrit 31L, Mean Corpuscular Volume 110H, Mean Corpuscular Hemoglobin 37H, Mean Corpuscular Hemoglobin Concent 33, Red Cell Distribution Width 13.5, Platelet Count 314, Mean Platelet Volume 8.8L, Immature Granulocyte % (Auto) 0, Neutrophils (%) (Auto) 61, Lymphocytes (%) (Auto) 29, Monocytes (%) (Auto) 7, Eosinophils (%) (Auto) 2, Basophils (%) (Auto) 0, Neutrophils # (Auto) 4.8, Lymphocytes # (Auto) 2.3, Monocytes # (Auto) 0.5, Eosinophils # (Auto) 0.2, Basophils # (Auto) 0.0, Immature Granulocyte # (Auto) 0.0, Sodium Level 137, Potassium Level 3.1L, Chloride Level 101, Carbon Dioxide Level 24, Anion Gap 12, Blood Urea Nitrogen 12, Creatinine 0.70, Estimat Glomerular Filtration Rate 85, BUN/Creatinine Ratio 17, Glucose Level 92, Calcium Level 8.7, Magnesium Level 1.8, Troponin I < 0.028 Home Meds Active Potassium Chloride 10 Meq Capsule.er 10 Meq PO DAILY 30 Days Metoprolol Succinate 50 Mg Tab.er.24h 50 Mg PO DAILY 30 Days Reported Excedrin Migraine Caplet (Aspirin/Acetaminophen/Caffeine) 1 Each Tablet 2 Each PO Q6-8HR PRN Ibuprofen 200 Mg Capsule 800 Mg PO Q8H PRN Gabapentin 400 Mg Capsule 800 Mg PO DAILY TAKES 2 (400MG) CAPS LAST FILLED 07-22-2020 #360/90 DAY SUPPLY Metoprolol Succinate 200 Mg Tab.er.24h 200 Mg PO DAILY LAST FILLED 07-22-2020 #90/90 DAY SUPPLY Gabapentin 400 Mg Capsule 400 Mg PO 1799,1999 LAST FILLED 07-22-2020 #360/90 DAY SUPPLY Duloxetine HCl 30 Mg Capsule.dr 30 Mg PO HS LAST FILLED 10-23-2020 #30/30 DAY SUPPLY Lisinopril-Hctz 20-12.5 mg Tab (Lisinopril/Hydrochlorothiazide) 1 Each Tablet 1 Ea PO HS Hydrocodone-Acetamin 10-325 mg (Hydrocodone/Acetaminophen) 1 Each Tablet 1 Ea PO Q4H Assessment/Pt Instructions Take medications as prescribed. Begin taking a decreased dose of metoprolol. Stop taking duloxetine. Begin taking potassium supplement. Follow-up with Dr. Barreto in about 3 weeks. Follow-up with your primary care physician. Return with worsening lightheadedness, dizziness, or if you feel like you are getting worse. Discharge Planning: <30 minutes discharge planning Discharge Instructions Discharge Diet: Low Sodium Diet Activity as Tolerated: Yes Consultations Cardiology Discharge Physical Examination Vital Signs Vital Signs Date Time Temp Pulse Resp B/P (MAP) Pulse Ox O2 Delivery O2 Flow Rate FiO2 12/27/20 08:40 37.3 79 18 162/84 (110) 92 Room Air General Appearance: No Apparent Distress, WD/WN, Anxious Respiratory: Lungs Clear, Normal Breath Sounds, No Respiratory Distress Cardiovascular: Regular Rate, Rhythm, No Edema, No Murmur Gastrointestinal: Normal Bowel Sounds, Non Tender, Soft Extremity: Normal Inspection, Non Tender, No Pedal Edema Skin: Normal Color, Warm/Dry Neurologic/Psychiatric: Alert, Oriented x3, No Motor/Sensory Deficits, Normal Mood/Affect Allergies: Coded Allergies: morphine (Verified Allergy, Unknown, Rash, 12/26/20) Discharge Summary Date of Admission Dec 26, 2020 at 04:24 Date of Discharge Discharge Date: Dec 27, 2020 Discharge Time: 11:36 Admission Diagnosis Presyncope Consults/Procedures Consulations Cardiology Discharge Diagnosis Presyncope Orthostatic hypotension (1) Pre-syncope Status: Acute (2) Orthostatic hypotension Status: Acute (3) Elevated troponin Status: Acute (4) Prolonged QT interval (5) Aortic stenosis (6) Primary hypertension (7) Hypokalemia Status: Acute (8) Acute kidney injury superimposed on chronic kidney disease (9) Cigarette smoker (10) Thyroid mass Status: Acute LUIS BUENO MD Dec 27, 2020 11:37
[2020-12-27] MEDS ORDERED: LISI1TAB46 PO (11:43)
[2020-12-27] MEDS ORDERED: amLODIPine 5 MG (NORVASC) TAB PO ONE (11:45)
[2020-12-27] MEDS ORDERED: hydrALAZINE (APESOLINE) 20 MG/ML VIAL IV ONE (11:45)
[2020-12-27] MEDS ORDERED: GABAPENTIN 400 MG (NEURONTIN) CAP PO SCH (18:00)
[2020-12-27] MEDS ORDERED: DULoxetine 30 MG (CYMBALTA) CAP PO SCH (21:00)
[2020-12-28] MEDS ORDERED: GABAPENTIN 400 MG (NEURONTIN) CAP PO SCH (09:00)
[2020-12-28] MEDS ORDERED: amLODIPine 5 MG (NORVASC) TAB PO SCH (09:00)
[2020-12-28] MEDS ORDERED: lisINopril 20 MG (PRINIVIL) TABLET PO SCH (09:00)
[2020-12-28] MEDS ORDERED: meTOproloL SUCCINATE 50 MG (TOPROL XL) TAB PO SCH (09:00)
[2020-12-28] MEDS ORDERED: meTOprolol SUCCINATE 100 MG (TOPROL XL) TAB PO SCH (09:00)
== END 2020-12-27 11:38 | disposition home or self-care (01) ==
LOC: ER 23:58 → CSD 23:59 → UNDOADMOB 12-26 04:24 → CSD 12-26 04:24 → UNDODISOB 12-27 12:15
PROVIDERS: ADMIT Internal Medicine; ATTEND Internal Medicine
DX: I95.1 Orthostatic hypotension (principal); R77.8 Other specified abnormalities of plasma proteins; R94.31 Abnormal electrocardiogram [ECG] [EKG]; I35.0 Nonrheumatic aortic (valve) stenosis; I10 Essential (primary) hypertension; E87.6 Hypokalemia; N17.9 Acute kidney failure, unspecified; J45.909 Unspecified asthma, uncomplicated; E07.89 Other specified disorders of thyroid; F17.210 Nicotine dependence, cigarettes, uncomplicated; F32.A Depression, unspecified; Z79.891 Long term (current) use of opiate analgesic; Z79.899 Other long term (current) drug therapy; Z90.89 Acquired absence of other organs; Z85.850 Personal history of malignant neoplasm of thyroid; Z79.82 Long term (current) use of aspirin
CPT/HCPCS: 70450; 71045; 80048 ×2; 80053; 81000; 83735 ×2; 84443; 84484 ×2; 85007; 85025; 85027; 85379; 86141; 93005 ×2; 93041; 93306; 96374; 99284; G0378; 36415

== ENCOUNTER → 2021-01-14 | Outpatient (CLI) | payer MEDICARE ==
[~2021-01-14] MED LIST: ASPI-789 PO; DULO30CA49 PO; GABA-490 PO; HYDR-3820 PO; IBUP-2185 PO; LISI1TAB46 PO; METO200T48 PO; METO50TA7 PO; POTA10CA43 PO
--- NOTE | 2021-01-14 13:03 | Diagnostic Imaging Report ---
PROCEDURE: US Thyroid. TECHNIQUE: Multiple real-time grayscale images were obtained of the thyroid in various projections. INDICATION: Left thyroid mass COMPARISON: None available FINDINGS: The right lobe of thyroid gland is not visualized, surgically absent. No abnormal soft tissue masses seen within the right thyroid bed. The left lobe of thyroid gland measures 5.4 x 2.5 x 2.2 cm. A part cystic and part solid nodule is present within the inferior pole of the left thyroid lobe measuring 1.4 x 1.3 x 1.3 cm. This demonstrates circumscribed margins and is wider than tall. Peripheral macrocalcifications are present. Additional 0.5 x 0.5 cm round hypoechoic nodules present within the mid left thyroid lobe. An additional 0.6 x 0.5 cm hypoechoic solid nodule is present within the inferior pole left thyroid lobe. IMPRESSION: 1.4 cm Ti RADS 4 nodule within the inferior pole of the left thyroid lobe. Given size and morphology, a follow-up ultrasound is recommended in one year. Additional subcentimeter Ti RADS 2 and 3 nodules within the left thyroid lobe. Right thyroidectomy without abnormal soft tissue mass within the right thyroid bed. Dictated by: Dictated on workstation # [id number]
== END ==
LOC: RAD 11:28
PROVIDERS: ATTEND Otolaryngology Otolaryngology/Facial Plastic Surgery
DX: E04.2 Nontoxic multinodular goiter (principal); Z90.2 Acquired absence of lung [part of]; Z90.89 Acquired absence of other organs
CPT/HCPCS: 76536

== ENCOUNTER 2021-04-23 18:56 | Emergency (ER) | payer MEDICARE ==
[~2021-04-23] VITALS: Ht 155 cm; Wt 63.5 kg
--- NOTE | 2021-04-23 19:28 | ED Cough/URI ---
General Stated Complaint: HEADACHE, CHEST PRESSURE, COUGH Source: patient Exam Limitations: no limitations History of Present Illness Date Seen by Provider: Apr 23, 2021 Time Seen by Provider: 19:15 Initial Comments Patient presents the ER by private conveyance from home with chief complaint of 2 days of progressively worsening nonproductive cough, congestion, temperature of 100 and nausea with vomiting. She has not been tested for Covid or flu. She did receive 2 doses of Moderna COVID-19 vaccine but not a flu vaccine. No known sick contacts. She does not smoke but she does have a history of COPD. She has n ot been using her albuterol/DuoNeb. She does not feel wheezy. She took some Excedrin for her migraine about 5 or 6 hours ago. No diarrhea or constipation. Allergies and Home Medications Allergies Coded Allergies: morphine (Verified Allergy, Unknown, Rash, 12/26/20) Patient Home Medication List Home Medication List Reviewed: Yes Aspirin/Acetaminophen/Caffeine (Excedrin Migraine Caplet) 1 Each Tablet, 2 EACH PO Q6-8HR PRN for Headache, (Reported) Entered as Reported by: TIKI AGUILAR on 12/26/20 1239 Gabapentin (Gabapentin) 400 Mg Capsule, 400 MG PO 1800,2000, (Reported) Entered as Reported by: JAYDON JACOBS on 12/26/20 1019 Gabapentin (Gabapentin) 400 Mg Capsule, 800 MG PO DAILY, (Reported) Entered as Reported by: TIKI AGUILAR on 12/26/20 1239 Hydrocodone/Acetaminophen (Hydrocodone-Acetamin 10-325 mg) 1 Each Tablet, 1 EA PO Q4H, (Reported) Entered as Reported by: AV DEAN on 12/26/20 0004 Ibuprofen (Ibuprofen) 200 Mg Capsule, 800 MG PO Q8H PRN for PAIN-MILD (1-4), (Reported) Entered as Reported by: TIKI AGUILAR on 12/26/20 1239 Lisinopril/Hydrochlorothiazide (Lisinopril-Hctz 20-12.5 mg Tab) 1 Each Tablet, 2 EA PO HS Prescribed by: LUIS BUENO on 12/27/20 1143 Metoprolol Succinate (Metoprolol Succinate) 50 Mg Tab.er.24h, 50 MG PO DAILY Prescribed by: LUIS BUENO on 12/27/20 1130 Potassium Chloride (Potassium Chloride) 10 Meq Capsule.er, 10 MEQ PO DAILY Prescribed by: LUIS UBENO on 12/27/20 1130 Review of Systems Review of Systems Constitutional: No chills, No diaphoresis EENTM: No ear discharge, No ear pain Respiratory: No cough, No short of breath Cardiovascular: No chest pain, No edema Gastrointestinal: No abdominal pain; nausea, vomiting Genitourinary: No discharge, No dysuria Musculoskeletal: No back pain, No joint pain All Other Systems Reviewed Negative Unless Noted: Yes Past Lutasqr-Ywsuae-Nbxdat Hx Patient Social History Tobacco Use?: No Use of E-Cig and/or Vaping dev: No Substance use?: No Past Medical History Surgeries: Yes Orthopedic, Thyroidectomy Respiratory: Yes Asthma Cardiac: Yes Hypertension Genitourinary: No Gastrointestinal: No Musculoskeletal: Yes Degenerate Disk Disease Cancer: Yes Thyroid What Type of Treatment Did You: Surgical Intervention Psychosocial: Yes Depression Family Medical History No Pertinent Family Hx Physical Exam Vital Signs - First Documented 04/23/21 19:17 Temp 36.2 Pulse 105 Resp 18 B/P (MAP) 188/104 (132) Pulse Ox 97 O2 Delivery Room Air Capillary Refill : Height: '" Weight: lbs. oz. kg; 26.38 BMI Method: General Appearance: WD/WN, no apparent distress Eyes: Bilateral Eye Normal Inspection, Bilateral Eye PERRL, Bilateral Eye EOMI HEENT: PERRL/EOMI, normal ENT inspection, TMs normal, pharynx normal Neck: full range of motion, supple, normal inspection Respiratory: lungs clear, normal breath sounds, no respiratory distress, no accessory muscle use Cardiovascular: normal peripheral pulses, regular rate, rhythm, no edema, tachycardia (102) Gastrointestinal: non tender, soft Neurologic/Psychiatric: alert, normal mood/affect, oriented x 3 Skin: normal color, warm/dry Progress/Results/Core Measures Suspected Sepsis SIRS Temperature: Pulse: Respiratory Rate: Blood Pressure / Mean: Results/Orders Lab Results Laboratory Tests Test 04/23/21 19:35 Range/Units Influenza Type A (RT-PCR) Not Detected Not Detecte Influenza Type B (RT-PCR) Not Detected Not Detecte SARS-CoV-2 RNA (RT-PCR) Not Detected Not Detecte My Orders Orders - IRON COTE Covid 19 Inhouse Test (04/23/21 19:23) Influenza A And B By Pcr (04/23/21 19:23) Chest 1 View, Ap/Pa Only (04/23/21 19:23) Ondansetron Oral Dissolve Tab (Zofran (04/23/21 19:30) Medications Given in ED Current Medications Medications Dose Ordered Sig/Gigi Route Start Time Stop Time Status Last Admin Dose Admin Ondansetron HCl 4 mg ONCE ONCE PO 04/23/21 19:30 04/23/21 19:31 DC 04/23/21 19:32 4 MG Vital Signs/I&O 04/23/21 19:17 Temp 36.2 Pulse 105 Resp 18 B/P (MAP) 188/104 (132) Pulse Ox 97 O2 Delivery Room Air Capillary Refill : Progress Note #1: Time: 19:27 Progress Note Patient has borderline tachycardia. Cough nausea upper respiratory tract sounds. Lung sounds are clear moving good air oxygenating 97% on room air nonlabored breathing. Plan to give her some swabs for Covid and flu get a chest x-ray and give her some Zofran. If he can tolerate the symptoms and get her drink some fluids we will let her go home for what is likely a viral upper respiratory tract infection/gastroenteritis. Progress Note #2: Time: 20:26 Progress Note Patient states he is feeling much better no longer having nausea. Says her stomach is calm down. She does not want a thing for the migraine she typically just uses Excedrin as long as she can keep her nausea at bay. She seems to have gastroenteritis and may be an upper respiratory tract infection but there is likely viral. Her heart rates in the 80s her oxygen saturations 98 to 99% on room air nonlabored breathing. We will send out a prescription for Zofran and return precautions were discussed. Patient is okay with this plan. We did offer her a shot of Toradol which she declined. Diagnostic Imaging Diagonstic Imaging: Xray Plain Films/CT/US/NM/MRI: chest Comments [facility] [place], [place] NAME: JUAN J VASQUEZ [facility] REC#: [id number] PT STATUS: REG ER : 1960 PHYSICIAN: IRON COTE MD ADMIT DATE: 04/23/21/ER Draft Date of Exam:04/23/21 CHEST 1 VIEW, AP/PA ONLY INDICATION: Intermittent vomiting. Headache and fever. Comparison is made to the prior study from December 26, 2020 FINDINGS: There is flattening of the diaphragms compatible with air trapping. There is stable but prominent basilar interstitial markings suggesting underlying COPD. There is no new pneumonia or effusion. There is no pneumothorax. Heart size unchanged without evidence of current edema or failure. There are prior operative changes involving the cervical thoracic spine. IMPRESSION: 1. Probable background features of COPD with pulmonary hyperinflation. No new or acute superimposed cardiopulmonary process evident. Dictated on workstation # [id number] Dict: 04/23/211941 Trans: 04/23/211947 [facility] [id number] Interpreted by: JUAN PATEL MD Electronically signed by: Reviewed: Reviewed by Me Departure Impression Primary Impression: Viral upper respiratory tract infection with cough Additional Impressions: Viral gastroenteritis Migraine Qualified Codes: G43.009 - Migraine without aura, not intractable, without status migrainosus Disposition: HOME, SELF-CARE Condition: Stable Departure-Patient Inst. Decision time for Depature: 20:27 Referrals: NO,LOCAL PHYSICIAN (PCP/Family) Primary Care Physician Patient Instructions: Viral Gastroenteritis, Adult (DC) Add. Discharge Instructions: Zofran/ondansetron 1 tablet every 6 hours under the tongue as necessary for nausea or vomiting. Tylenol Motrin as necessary for headache. Return to the ER for intractable vomiting, worsening symptoms, dehydration etc. Scripts Ondansetron (Ondansetron Odt) 4 Mg Tab.rapdis 4 MG PO Q6H PRN for NAUSEA/VOMITING, #8 TAB 0 Refills Prov: IRON COTE 04/23/21 Work/School Note: Work Release Form Date Seen in the Emergency Department: Apr 23, 2021 Return to Work: Apr 27, 2021 Restrictions: Return-No Fever (24hrs) IRON COTE Apr 23, 2021 19:28
[2021-04-23] MEDS ORDERED: ONDANSETRON 4 MG (ZOFRAN) ORAL DISSOLVE TAB PO ONE (19:30)
--- NOTE | 2021-04-23 19:48 | Diagnostic Imaging Report ---
INDICATION: Intermittent vomiting. Headache and fever. Comparison is made to the prior study from December 26, 2020 FINDINGS: There is flattening of the diaphragms compatible with air trapping. There is stable but prominent basilar interstitial markings suggesting underlying COPD. There is no new pneumonia or effusion. There is no pneumothorax. Heart size unchanged without evidence of current edema or failure. There are prior operative changes involving the cervical thoracic spine. IMPRESSION: 1. Probable background features of COPD with pulmonary hyperinflation. No new or acute superimposed cardiopulmonary process evident. Dictated by: Dictated on workstation # [id number]
[2021-04-23] MEDS ORDERED: RX-ONDANSETRON 4 MG ODT (ZOFRAN) PPK #4 PO STA (20:26)
[2021-04-23] MEDS ORDERED: ONDA4TAB11 PO (20:28)
[2021-04-23 20:32] VITALS: BP 162/93
== END 2021-04-23 20:34 | disposition home or self-care (01) ==
LOC: EDUNIT# 18:56 → ER 18:58
DX: J06.9 Acute upper respiratory infection, unspecified (principal); A08.4 Viral intestinal infection, unspecified; G43.909 Migraine, unspecified, not intractable, without status migrainosus; Z20.822 Contact with and (suspected) exposure to COVID-19
CPT/HCPCS: 71045; 87636